=== PATIENT | male | born 1935 | race Caucasian/White ===

== ENCOUNTER 2017-03-09 07:46 | Day surgery (SDC) | payer MEDICARE, BC ==
[2017-03-04 14:33] VITALS: BMI 23.6
[~2017-03-09 07:46] MED LIST: SODIUM CHLORIDE 0.9% 1,000 ML IV SCH; ceFAZolin 1,000 MG in SODIUM CHLORIDE 0.9% IRRIGATIO 250 ML IRRIGATION ONE; ceFAZolin IN SWFI 2 GM/20 ML SYRINGE IVP ONE
[2017-03-09] MEDS ORDERED: fentaNYL (PF) 50 MCG/ML 2 ML AMP IV ONE (09:28)
[2017-03-09] MEDS ORDERED: MIDAZOLAM 2 MG/2 ML VIAL IV ONE (09:29)
[2017-03-09] MEDS ORDERED: fentaNYL (PF) 50 MCG/ML 2 ML AMP ONE (09:30)
[2017-03-09] MEDS ORDERED: MIDAZOLAM 2 MG/2 ML VIAL ONE (09:30)
[2017-03-09] MEDS ORDERED: LIDOCAINE 1% INJ 10MG/ML (20 ML MDV) SQ ONE ×2 (09:37→09:43)
[2017-03-09] MEDS ORDERED: LIDOCAINE 2% INJ 20 MG/ML SQ ONE (09:37)
[2017-03-09] MEDS ORDERED: NITROGLYCERIN OINT 1 INCH/GM PACKET TOPICAL ONE ×2 (10:41→10:45)
[2017-03-09] MEDS ORDERED: NITROGLYCERIN SL TABS 0.4 MG TAB SUBLINGUAL ONE ×4 (10:47→11:05)
[2017-03-09] MEDS ORDERED: IODIXANOL 320 MG/ML 100 ML IV ONE (11:25)
[2017-03-09] MEDS ORDERED: ACETAMINOPHEN TAB 325 MG TAB PO PRN (11:59)
[2017-03-09] MEDS ORDERED: SODIUM CHLORIDE 0.9% 1,000 ML IV SCH (13:00)
[2017-03-09] MEDS ORDERED: ceFAZolin IN SWFI 2 GM/20 ML SYRINGE IVP SCH (13:30)
[2017-03-09] MEDS ORDERED: NITROGLYCERIN SL TABS 0.4 MG TAB SUBLINGUAL PRN (14:37)
[2017-03-09] MEDS: HYDROcodone/APAP 5-325MG 1 EACH TAB PO PRN ×3 (14:57→21:27)
[2017-03-09] MEDS: ceFAZolin IN SWFI 2 GM/20 ML SYRINGE IVP SCH ×2 (16:31→21:14)
[2017-03-09] MEDS ORDERED: PRAVASTATIN SODIUM 80 MG TAB PO SCH (17:30)
[2017-03-09] MEDS ORDERED: METOPROLOL SUCCINATE (ER) 25 MG TAB.ER.24H PO SCH (17:30)
[2017-03-09] MEDS: CALCIUM CARB-VIT D 250MG-125UN 1 EACH TAB PO SCH (20:49)
[2017-03-09] MEDS ORDERED: NON-FORMULARY DRUG (Glucosam/Chon-Msm1/C/Mang/Bosw [Glucosamine-Chondroitin Tablet] 1 EACH PO SCH (21:00)
[2017-03-10] MEDS: ceFAZolin IN SWFI 2 GM/20 ML SYRINGE IVP SCH ×2 (06:14→10:15)
[2017-03-10 07:28] VITALS: BP 124/69; PULSE 82; RESP 16; TEMP 98.4
[2017-03-10 07:29] LABS: HCT 36.4 % (39.0-53.0); HGB 11.5 gm/dL (13.0-17.5); MCH 32.2 pg (25.0-35.0); MCHC 31.5 g/dL (31.0-37.0); MCV 102.2 fL (80.0-100.0); Macrocytosis Slight; Mean Platelet Volume 7.7; Platelet Count 116 k/uL (150-450); RBC 3.57 m/uL (4.30-5.90); RDW 14.1 % (11.5-15.5); WBC 4.8 k/uL (3.8-10.6)
[2017-03-10 07:43] LABS: Anion Gap 8 mmol/L; Blood Urea Nitrogen 20 mg/dL (9-20); Calcium 8.4 mg/dL (8.4-10.2); Carbon Dioxide 26 mmol/L (22-30); Chloride 106 mmol/L (98-107); Glucose 87 mg/dL (74-99); Potassium 4.1 mmol/L (3.5-5.1); Sodium 140 mmol/L (137-145)
--- NOTE | 2017-03-10 08:03 | XR ---
EXAMINATION TYPE: XR chest 2V DATE OF EXAM: 03/10/2017 COMPARISON: Chest x-ray October 27, 2013. HISTORY: Lead placement check. TECHNIQUE: Frontal and lateral views of the chest are obtained. FINDINGS: There is new 2-lead pacemaker with leads projecting into right atrium and right ventricle. Overlying sternal wires are redemonstrated. There is persistent elevated left hemidiaphragm. There i s no focal air space opacity, pleural effusion, or pneumothorax seen. The cardiac silhouette size re nahun enlarged with atherosclerotic aorta. Multilevel spurring in thoracic spine is redemonstrated. IMPRESSION: Satisfactory positioning of dual lead pacemaker without radiographic evidence of complic ation related to procedure.
[2017-03-10] MEDS: HYDROcodone/APAP 5-325MG 1 EACH TAB PO PRN (08:20)
[2017-03-10] MEDS: CALCIUM CARB-VIT D 250MG-125UN 1 EACH TAB PO SCH (08:21)
[2017-03-10] MEDS ORDERED: amLODIPine 10 MG TAB PO SCH (09:00)
[2017-03-10] MEDS ORDERED: LISINOPRIL 20 MG TAB PO SCH (09:00)
[2017-03-10] MEDS ORDERED: TAMSULOSIN 0.4 MG CAP.ER.24H PO SCH (09:00)
--- NOTE | 2017-03-10 09:14 | P.PCN ---
Date of Procedure: 03/09/17 Preoperative Diagnosis: Sick sinus syndrome with history of syncope Postoperative Diagnosis: The same Procedure(s) Performed: Dual-chamber permanent pacemaker implantation, bilateral axillary venography Description of Procedure: HISTORY: This is a 81-year-old gentleman with history of valvular heart disease was been having episodes of dizziness and syncope. Patient was found to have evidence of intermittent atrial fibrillation and evidence of bradycardia and pauses. Because of sick sinus syndrome associated with symptoms, patient is advised to have permanent pacemaker implantation. CONSENT:I have discussed the risks, benefits and alternative therapies for the above-mentioned procedure and for both sedation/analgesia as well as necessary blood product administration, if indicated, as they pertain to this patient. The patient has indicated understanding and acceptance of the risks and procedures discussed. PROCEDURE: Patient was brought to the lab in a fasting state. Patient was prepped and draped in the usual fashion. Patient was given IV sedation with fentanyl and Versed. The skin below the left clavicle was infiltrated with lidocaine. An incision was made parallel to deltopectoral groove was deepened until the pectoral fascia was exposed. A pocket was created by blunt dissection and cautery. Axillary venography was performed to delineate the course of the axillary vein. Patient required multiple attempts. It appears that the axillary vein ventricle spasm after the first needle stick. Venography was also performed on the right side in case we may have to switch the site. However, subsequently Dr. Zhong was able to enter the vein after treating patient nitrates to relieve the spasm. 2 sticks were performed into extrathoracic portion of the axillary vein and 2 sheaths were advanced over the guidewires and left in subclavian vein. Conscious Sedation: Versed 1 mg Fentanyl 50 g Duration 120 minutes LEADS: ATRIAL: This is manufactured by [employer]. Model number is 7741. Serial number is [id number]. This is a screw-in lead VENTRICULAR:. This is manufactured by [employer].. Model number is 7742. Serial number is [id number]. There is also a screw-in lead The ventricular lead is maneuvered l with help of a straight and curved stylets into the left ventricle apical region. Satisfactory position was obtained and threshold measurements were made. The atrial lead was then maneuvered into the right atrial appendage. And thresholds were obtained. THRESHOLDS: ATRIUM: The minimal patient threshold could not be obtained because patient was in atrial flutter. The flutter waves are about 2- 3 VENTRICLE: The minimal patient threshold was 0.4 V at pulse width of 0.5 ms. R-wave: 25 mV in the impedance was 946 ohms The leads and pulse generator remained in the pocket after it was washed with antibiotics. Pocket was closed in the usual fashion. The fascia was closed with 2-0 Prolene ,the subcutaneous tissue was closed with 3-0 Prolene and the skin was closed with 4-0 Prolene. PROGRAMMING: MODE: DD IR RATE: 60 to 1:30 OUTPUT: Atrium 3.5 V at 0.4 ms Ventricle: 3.5 V at 0.4 ms FINAL IMPRESSION: Successful implantation of dual-chamber pacemaker. Bilateral axillary venography. COMPLICATIONS: None PLAN:. Patient will be monitored on the telemetry unit. Prophylactic antibiotics will be continued. Chest x-ray and blood work being followed in the morning. He patient is stable he'll be discharged home within 24 hours
[2017-03-10] MEDS ORDERED: MULTIVITAMINS, THERA 1 EACH TAB PO SCH (12:00)
--- NOTE | 2017-03-11 11:31 | P.DS ---
Providers Date of admission: 03/09/2017 Attending physician: Dominic Doshi Primary care physician: Isela Olivas - Discharge Diagnosis(es) (1) Sick sinus syndrome Status: Acute (2) Paroxysmal atrial fibrillation Status: Acute (3) Valvular heart disease Status: Acute Hospital Course: This patient with history of valvular heart disease has been having intermittent episodes of atrial fibrillation with bradycardia and episodes of near syncope. These findings are consistent with sinus syndrome. Patient is advised to have a permanent pacemaker implantation. Patient had a dual-chamber permanent pacemaker implantation on 09 of March. Patient remained stable after the procedure. Patient denied in atrial flutter with a slow to moderate ventricular response. Pacemaker is functioning normally. In DDD mode, pacemaker was not mode switching appropriately because it was not sensing the flutter waves that or falling in blanking period. The pacemaker is programmed to DDIR mode. The pacemaker site showed mild staining but no evidence of any hematoma. Patient is feeling well and is being discharged home today. Patient will continue his medications, but we'll start anti-coagulation therapy from . He'll keep the dressing dry until seen in the office. He is instructed not to lift any heavy weights, pull or push with the left hand. He is advised to keep the arm below the shoulder level. Follow-up in the office in one week. He'll continue home medication except the anti-cognition therapy that will be started on . Patient to report if he has any significant swelling, pain or bleeding. Patient will report if has any fever or chills. Patient Condition at Discharge: Fair Plan - Discharge Summary Discharge Rx Participant: No New Discharge Prescriptions: No Action Pravastatin Sodium [Pravachol] 80 mg PO W/SUPPER Lisinopril [Zestril] 20 mg PO DAILY Aspirin 325 mg PO W/SUPPER Metoprolol Succinate [Toprol XL] 25 mg PO W/SUPPER Multivitamins, Thera [Multivitamin (formulary)] 1 tab PO DAILY Nitroglycerin Sl Tabs [Nitrostat] 0.4 mg SUBLINGUAL DIRECTED PRN #25 tab PRN Reason: Pain Tamsulosin [Flomax] 0.4 mg PO DAILY Glucosam/Stanislaw-Msm1/C/Jem/Bosw [Glucosamine-Chondroitin Tablet] 1 each PO BID Apixaban [Eliquis] 2.5 mg PO BID Calcium Citrate/Vitamin D3 [Citracal-Vit D3 200 mg-250 Tab] 1 each PO BID amLODIPine BESYLATE [Norvasc] 10 mg PO DAILY Discharge Medication List Aspirin 325 mg PO W/SUPPER 10/27/13 [History] Lisinopril [Zestril] 20 mg PO DAILY 10/27/13 [History] Metoprolol Succinate [Toprol XL] 25 mg PO W/SUPPER 10/27/13 [History] Multivitamins, Thera [Multivitamin (formulary)] 1 tab PO DAILY 10/27/13 [History ] Pravastatin Sodium [Pravachol] 80 mg PO W/SUPPER 10/27/13 [History] Nitroglycerin Sl Tabs [Nitrostat] 0.4 mg SUBLINGUAL DIRECTED PRN #25 tab [Rx] Apixaban [Eliquis] 2.5 mg PO BID 03/04/17 [History] Calcium Citrate/Vitamin D3 [Citracal-Vit D3 200 mg-250 Tab] 1 each PO BID [History] Glucosam/Stanislaw-Msm1/C/Jem/Bosw [Glucosamine-Chondroitin Tablet] 1 each PO BID [History] Tamsulosin [Flomax] 0.4 mg PO DAILY 03/04/17 [History] amLODIPine BESYLATE [Norvasc] 10 mg PO DAILY 03/04/17 [History] Follow up Appointment(s)/Referral(s): Dominic Doshi MD [STAFF PHYSICIAN] - 03/16/17 10:00 am Patient Instructions/Handouts: Pacemaker (GEN) Activity/Diet/Wound Care/Special Instructions: 1. Keep dressing clean and dry. Do not remove dressing 2. You may shower and cover dressing with saran or cling wrap. No baths 3. Do not raise left arm above heart level. No reaching, lifting, backscratching, pulling on cords, golfing, swinging an axe, weightlifting, etc. with left arm 4. You may use your right arm freely. 5. You may perform pendulum exercises with left arm to prevent frozen shoulder. 6. Notify Cardiology office if you notice any bleeding, swelling, or drainage of cloudy fluid from incision site, or develop fevers 7. Follow up in the [facility] in one week as scheduled *Hold Eliquis until Wednesday03/12/17* Discharge Disposition: HOME SELF-CARE
== END 2017-03-10 11:50 | disposition home or self-care (01) ==
LOC: CATHEP 07:46 → 3OBS 11:49 → CATHEP 03-10 11:50
PROVIDERS: ATTEND Internal Medicine Cardiovascular Disease
DX: I49.5 Sick sinus syndrome (principal); I25.10 Atherosclerotic heart disease of native coronary artery without angina pectoris; I10 Essential (primary) hypertension; E78.5 Hyperlipidemia, unspecified; Z95.5 Presence of coronary angioplasty implant and graft; Z98.890 Other specified postprocedural states; I48.0 Paroxysmal atrial fibrillation; Z79.01 Long term (current) use of anticoagulants; Z79.82 Long term (current) use of aspirin; Z79.899 Other long term (current) drug therapy
CPT/HCPCS: 33208; 80048; 85027; 71046; C1769; C1785; C1898; J2250; Q9967; J2001; J3010; J0690 ×2